=== PATIENT | female | born 1995 | race American Indian/Alaskan Native ===

== ENCOUNTER 2019-03-14 07:55 | Day surgery (SDC) | payer OTHER ==
[2019-03-14] MEDS ORDERED: LOPRESSOR IV NR (09:00)
[2019-03-14] MEDS ORDERED: NITROSTAT SL NR (09:00)
[2019-03-14] MEDS ORDERED: ATROPINE IV NR (09:02)
[2019-03-14 09:04] LABS: BUN/Creatinine Ratio 19; Blood Urea Nitrogen 17 mg/dL (7-17); Calcium 10.1 mg/dL (8.4-10.2); Hemolysis Index 14
[2019-03-14] MEDS ORDERED: ATROPINE 0.1% (CARDIAC) ONE (09:05)
[2019-03-14 09:57] VITALS: BP 120/45
--- NOTE | 2019-03-14 12:39 | Cat Scan Report ---
LIMITED CTA CHEST INDICATION: Limited evaluation of the chest associated with cardiac CTA exam. HISTORY: Chest pain. TECHNIQUE: Arterial phase technique utilized to evaluate the carotid arteries. Please refer to the of ficial cardiac CTA report for contrast details. All CT scans at this location are performed using CT dose reduction for ALARA by means of automated exposure control. FINDINGS: No pathologic adenopathy. Visualized lungs are clear. There are degenerative changes in the spine with no acute osseous abnormality. Limited imaging through the upper abdomen shows nothing acute. IMPRESSION: No significant incidental finding. Signer Name: Waldemar Cobos Jr, MD Signed: 03/14/2019 12:34 PM Workstation Name: [id number]
== END 2019-03-14 09:50 | disposition home or self-care (01) ==
LOC: CATHLABREC 07:55
PROVIDERS: ATTEND Specialist
DX: R07.89 Other chest pain (principal); R94.31 Abnormal electrocardiogram [ECG] [EKG]; I10 Essential (primary) hypertension; M47.899 Other spondylosis, site unspecified; Z87.891 Personal history of nicotine dependence
CPT/HCPCS: 36415; 75574; 80048; Q9967; J0461